=== PATIENT | female | born 1990 | race Caucasian/White ===

== ENCOUNTER 2017-11-16 19:47 | Emergency (ER) | payer OTHER, MEDICAID | END 2017-11-16 23:33 | disposition home or self-care (01) | LOC: D.ER 19:47 | DX: R51 Headache (principal); M54.2 Cervicalgia; M54.5 Low back pain; V43.52XA Car driver injured in collision with other type car in traffic accident, initial encounter; Y93.89 Activity, other specified; Y92.410 Unspecified street and highway as the place of occurrence of the external cause ==

== ENCOUNTER → 2019-04-07 12:29 | Outpatient (CLI) | payer OTHER | END | disposition home or self-care (01) | LOC: D.US 12:29 | PROVIDERS: ATTEND Specialist | DX: N94.6 Dysmenorrhea, unspecified (principal); R10.2 Pelvic and perineal pain ==

== ENCOUNTER 2019-04-17 16:44 | Emergency (ER) | payer OTHER ==
[~2019-04-17] VITALS: Ht 162.6 cm; Wt 54.5 kg
[2019-04-17 17:02] VITALS: Ht 162.6 cm; Wt 54.5 kg
[2019-04-17] MEDS ORDERED: PRENAVITE1 TAB PO (17:03)
[2019-04-17 17:47] LABS: APPEARANCE CLEAR (CLEAR); BILIRUBIN NEGATIVE (NEGATIVE); COLOR STRAW (YELLOW); GLUCOSE NEGATIVE (NEGATIVE); KETONE NEGATIVE (NEGATIVE); NITRITE NEGATIVE (NEGATIVE); PROTEIN NEGATIVE (NEGATIVE); SPECIFIC GRAVITY 1.005 (1.005-1.020); UROBILINOGEN NORMAL (NORMAL)
[2019-04-17 17:48] LABS: BASOPHILS 0.4 % (0-2); EOSINOPHILS 1.5 % (0-7); HEMATOCRIT 41.5 % (36.0-48.0); HEMOGLOBIN 14.6 g/dL (12-16); IMMATURE GRANULOCYTES 0.2 % (0-5); LYMPHOCYTES 29.9 % (15-50); MCH 31.6 pg (26.0-34.0); MCHC 35.2 g/dL (31.0-37.0); MCV 89.8 fL (80.0-100.0); MONOCYTES 5.4 % (2-11); NEUTROPHILS 62.6 % (40-80); PLATELET COUNT 138 10x3/uL (130-400); RBC 4.62 10x6/uL (4.00-5.40); WBC 5.4 10x3/uL (4.8-10.8)
[2019-04-17 18:13] LABS: ALBUMIN 4.4 g/dL (3.4-5.0); ALKALINE PHOSPHATASE 46 U/L (46-116); ALT (SGPT) 22 U/L (10-68); BILIRUBIN - TOTAL 0.41 mg/dL (0.2-1.3); CALC OSMOLALITY 272 mosm/kg (275-300); CALCIUM 9.5 mg/dL (8.5-10.1); CARBON DIOXIDE 30.6 mmol/L (21.0-32.0); CHLORIDE - SERUM 102 mmol/L (98-107); CREATININE - SERUM 0.6 mg/dL (0.6-1.3); GLUCOSE 91 mg/dL (74-106); POTASSIUM - SERUM 3.7 mmol/L (3.5-5.1); PROTEIN - SERUM 7.6 g/dL (6.4-8.2); SODIUM 138 mmol/L (136-145); UREA NITROGEN 4 mg/dL (7-18); eGFR NON AFRICAN AMERICAN > 90 mL/min (90-120)
[2019-04-17 18:39] LABS: HCG - QUANTITATIVE (MATERNAL) 31288 mIU/mL
[2019-04-17] MEDS ORDERED: REGLAN5 MG PO (19:16)
[2019-04-17 20:08] VITALS: BP 127/79
== END 2019-04-17 20:09 | disposition home or self-care (01) ==
LOC: D.ER 16:44
PROVIDERS: Family Medicine
DX: O21.9 Vomiting of pregnancy, unspecified (principal); Z3A.01 Less than 8 weeks gestation of pregnancy

== ENCOUNTER 2019-07-28 14:11 | Emergency (ER) | payer OTHER ==
[~2019-07-28] VITALS: Ht 162.6 cm; Wt 53.6 kg
[~2019-07-28 14:11] MED LIST: PRENAVITE1 TAB PO; REGLAN5 MG PO
[2019-07-28 14:18] VITALS: Ht 162.6 cm; Wt 53.6 kg
[2019-07-28 14:57] LABS: APPEARANCE CLEAR (CLEAR); BILIRUBIN NEGATIVE (NEGATIVE); COLOR YELLOW (YELLOW); GLUCOSE NEGATIVE (NEGATIVE); KETONE NEGATIVE (NEGATIVE); NITRITE NEGATIVE (NEGATIVE); PROTEIN NEGATIVE (NEGATIVE); UROBILINOGEN NORMAL (NORMAL)
[2019-07-28 14:58] LABS: RED CELLS - URINE 0-5 /hpf (0-5); WHITE CELLS - URINE OCC /hpf (NEGATIVE)
[2019-07-28 14:59] LABS: EPITHELIAL CELLS OCC /hpf (0-5)
[2019-07-28 15:02] LABS: BASOPHILS 0.2 % (0-2); EOSINOPHILS 0.6 % (0-7); HEMATOCRIT 41.5 % (36.0-48.0); HEMOGLOBIN 14.1 g/dL (12-16); LYMPHOCYTES 23.8 % (15-50); MCH 31.5 pg (26.0-34.0); MCV 92.6 fL (80.0-100.0); MEAN PLATELET VOLUME 11.3 fL (7.4-10.4); MONOCYTES 6.3 % (2-11); NEUTROPHILS 69.1 % (40-80); PLATELET COUNT 153 10x3/uL (130-400); RBC 4.48 10x6/uL (4.00-5.40); RDW 12.3 % (11.5-14.5); WBC 4.6 10x3/uL (4.8-10.8)
[2019-07-28 15:32] LABS: CALC OSMOLALITY 271 mosm/kg (275-300); CALCIUM 9.3 mg/dL (8.5-10.1); CARBON DIOXIDE 26.1 mmol/L (21.0-32.0); CHLORIDE - SERUM 104 mmol/L (98-107); CREATININE - SERUM 0.6 mg/dL (0.6-1.3); GLUCOSE 86 mg/dL (74-106); SODIUM 138 mmol/L (136-145); UREA NITROGEN 5 mg/dL (7-18); eGFR NON AFRICAN AMERICAN > 90 mL/min (90-120)
[2019-07-28 15:51] LABS: ALBUMIN 4.2 g/dL (3.4-5.0); ALKALINE PHOSPHATASE 47 U/L (46-116); ALT (SGPT) 25 U/L (10-68); BILIRUBIN - TOTAL 0.34 mg/dL (0.2-1.3); HCG - QUANTITATIVE (MATERNAL) 41479 mIU/mL; PROTEIN - SERUM 7.3 g/dL (6.4-8.2)
[2019-07-28 16:32] VITALS: BP 119/68
== END 2019-07-28 16:37 | disposition home or self-care (01) ==
LOC: D.ER 14:11
PROVIDERS: Emergency Medicine
DX: O20.9 Hemorrhage in early pregnancy, unspecified (principal); Z3A.01 Less than 8 weeks gestation of pregnancy

== ENCOUNTER 2019-09-09 07:19 | Emergency (ER) | payer MEDICAID ==
[~2019-09-09] VITALS: Ht 162.6 cm; Wt 54.5 kg
[2019-09-09 07:28] VITALS: Ht 162.6 cm; Wt 54.5 kg
[2019-09-09 08:04] LABS: BASOPHILS 0 % (0-2); EOSINOPHILS 1.2 % (0-7); HEMATOCRIT 40.2 % (36.0-48.0); HEMOGLOBIN 13.9 g/dL (12-16); IMMATURE GRANULOCYTES 0.2 % (0-5); LYMPHOCYTES 21.9 % (15-50); MCH 31.4 pg (26.0-34.0); MCHC 34.6 g/dL (31.0-37.0); MCV 90.7 fL (80.0-100.0); MEAN PLATELET VOLUME 10.7 fL (7.4-10.4); MONOCYTES 5.8 % (2-11); NEUTROPHILS 70.9 % (40-80); PLATELET COUNT 141 10x3/uL (130-400); RBC 4.43 10x6/uL (4.00-5.40); RDW 12.3 % (11.5-14.5); WBC 4.2 10x3/uL (4.8-10.8)
[2019-09-09 08:14] LABS: AMORPHOUS SEDIMENT >1+ /lpf (NONE SEEN); APPEARANCE SL CLDY (CLEAR); BACTERIA FEW /hpf (NEGATIVE); BILIRUBIN NEGATIVE (NEGATIVE); COLOR YELLOW (YELLOW); EPITHELIAL CELLS OCC /hpf (0-5); GLUCOSE NEGATIVE (NEGATIVE); KETONE NEGATIVE (NEGATIVE); MUCUS <1+ /lpf (NONE SEEN); NITRITE NEGATIVE (NEGATIVE); PROTEIN NEGATIVE (NEGATIVE); RED CELLS - URINE OCC /hpf (0-5); UROBILINOGEN NORMAL (NORMAL); WHITE CELLS - URINE NSEEN /hpf (NEGATIVE)
[2019-09-09 08:18] LABS: CALC OSMOLALITY 272 mosm/kg (275-300); CALCIUM 9.3 mg/dL (8.5-10.1); CARBON DIOXIDE 26.3 mmol/L (21.0-32.0); CHLORIDE - SERUM 106 mmol/L (98-107); CREATININE - SERUM 0.5 mg/dL (0.6-1.3); GLUCOSE 89 mg/dL (74-106); POTASSIUM - SERUM 3.6 mmol/L (3.5-5.1); SODIUM 138 mmol/L (136-145); UREA NITROGEN 8 mg/dL (7-18); eGFR NON AFRICAN AMERICAN > 90 mL/min (90-120)
[2019-09-09 08:30] LABS: ALBUMIN 3.7 g/dL (3.4-5.0); ALKALINE PHOSPHATASE 31 U/L (46-116); ALT (SGPT) 20 U/L (10-68); BILIRUBIN - TOTAL 0.49 mg/dL (0.2-1.3); PROTEIN - SERUM 6.7 g/dL (6.4-8.2)
[2019-09-09 09:07] LABS: HCG - QUANTITATIVE (MATERNAL) 52302 mIU/mL
[2019-09-09 10:10] VITALS: BP 112/66
== END 2019-09-09 10:52 | disposition home or self-care (01) ==
LOC: D.ER 07:19
PROVIDERS: Family Medicine
DX: O20.8 Other hemorrhage in early pregnancy (principal); O44.11 Complete placenta previa with hemorrhage, first trimester; Z3A.12 12 weeks gestation of pregnancy

== ENCOUNTER 2020-03-06 19:03 | Emergency (ER) | payer OTHER ==
[~2020-03-06] VITALS: Ht 162.6 cm; Wt 63.6 kg
[2020-03-06 19:27] VITALS: Ht 162.6 cm; Wt 63.6 kg
[2020-03-06 19:37] LABS: BILIRUBIN NEGATIVE (NEGATIVE); GLUCOSE NEGATIVE (NEGATIVE); KETONE SMALL mg/dL (NEGATIVE); NITRITE NEGATIVE (NEGATIVE); SPECIFIC GRAVITY 1.015 (1.005-1.020); UROBILINOGEN NORMAL (NORMAL)
[2020-03-06 19:38] LABS: BACTERIA FEW /hpf (NEGATIVE); EPITHELIAL CELLS 0-5 /hpf (0-5); WHITE CELLS - URINE 0-5 /hpf (NEGATIVE)
[2020-03-06 20:16] LABS: BASOPHILS 0 % (0-2); EOSINOPHILS 3.5 % (0-7); HEMOGLOBIN 12.6 g/dL (12-16); IMMATURE GRANULOCYTES 0.5 % (0-5); LYMPHOCYTES 23.9 % (15-50); MCH 30.7 pg (26.0-34.0); MCHC 32.3 g/dL (31.0-37.0); MCV 95.1 fL (80.0-100.0); MEAN PLATELET VOLUME 10.8 fL (7.4-10.4); MONOCYTES 7.7 % (2-11); NEUTROPHILS 64.4 % (40-80); PLATELET COUNT 140 10x3/uL (130-400); RDW 12.7 % (11.5-14.5); WBC 4.3 10x3/uL (4.8-10.8)
[2020-03-06 20:17] LABS: CALC OSMOLALITY 275 mosm/kg (275-300); CARBON DIOXIDE 27.3 mmol/L (21.0-32.0); CHLORIDE - SERUM 106 mmol/L (98-107); CREATININE - SERUM 0.8 mg/dL (0.6-1.3); GLUCOSE 80 mg/dL (74-106); POTASSIUM - SERUM 3.5 mmol/L (3.5-5.1); SODIUM 139 mmol/L (136-145); UREA NITROGEN 11 mg/dL (7-18); eGFR NON AFRICAN AMERICAN 90 mL/min (90-120)
[2020-03-06 20:32] LABS: ALBUMIN 2.9 g/dL (3.4-5.0); ALKALINE PHOSPHATASE 112 U/L (30-120); ALT (SGPT) 42 U/L (10-68); BILIRUBIN - TOTAL 0.26 mg/dL (0.2-1.3); CREATINE KINASE 74 UL (21-215); PRO BNP 420 pg/mL (0-125); PROTEIN - SERUM 6.3 g/dL (6.4-8.2)
[2020-03-06 20:42] LABS: TROPONIN-I < 0.017 ng/mL (0.000-0.060)
[2020-03-07 01:14] VITALS: BP 147/65
== END 2020-03-07 01:15 | disposition other institution (70) ==
LOC: D.ER 19:03
PROVIDERS: Emergency Medicine
DX: O99.89 Other specified diseases and conditions complicating pregnancy, childbirth and the puerperium (principal); O99.345 Other mental disorders complicating the puerperium; R07.9 Chest pain, unspecified; R42 Dizziness and giddiness; R00.1 Bradycardia, unspecified